=== PATIENT | male | born 1980 | race Caucasian/White ===

== ENCOUNTER 2023-09-10 11:11 | Day surgery (SDC) | payer OTHER, BC ==
[~2023-09-10] VITALS: Ht 185.4 cm; Wt 143.7 kg
[~2023-09-10 11:11] MED LIST: Lactated Ringer's 1,000 ML IV ONE; Ropivacaine 0.5% HCl/Pf 5 MG/ML 20ML VIAL ONE
[2023-09-10] MEDS ORDERED: CeFAZolin Sodium 3,000 MG in NS 100 ML IV SCH (11:25)
[2023-09-10] MEDS ORDERED: Aspir 8181 MG PO (11:32)
[2023-09-10] MEDS ORDERED: METFORMIN HCL500 M2 PO (11:32)
[2023-09-10] MEDS ORDERED: Prinivil10 MG PO (11:32)
[2023-09-10] MEDS ORDERED: DEPO-TESTO200 MG/18 IM (11:33)
[2023-09-10] MEDS ORDERED: Lactated Ringer's 1,000 ML IV ONE (11:54)
[2023-09-10] MEDS ORDERED: propofoL 20 ML IV ONE (12:28)
[2023-09-10] MEDS ORDERED: FentaNYL Citrate 50 MCG/ML 2 ML Injection ONE (12:54)
[2023-09-10] MEDS ORDERED: Dexamethasone Sod Phos 10 MG/ML 1ML VIAL ONE (12:54)
[2023-09-10] MEDS ORDERED: HYDROmorphone HCl/Pf 1MG SYR ONE (13:04)
[2023-09-10] MEDS ORDERED: Albuterol 2.5 MG/3 ML VIAL ONE (13:17)
[2023-09-10] MEDS ORDERED: Ondansetron HCl 2 MG / ML 2ML Vial ONE (13:27)
--- NOTE | 2023-09-10 15:53 | NUR ---
09/10/23 Edvin Mcfarland PT PREFERS TO USE ICE PACK RATHER THAN POLAR PACK. RATES PAIN AT 3/10 TO LEFT LEG PRIOR TO DISCHARGE. PROVIDED INSPIROMETER AND INSTRUCTION FOR USE DUE TO FLUCTUATING O2 SATS. SPOUSE PRESENT FOR ALL DISCHARGE INSTRUCTIONS. PT IN NO ACUTE DISTRESS OF TIME OF DISCHARGE.
== END 2023-09-10 15:50 | disposition home or self-care (01) ==
LOC: ORSCSDS 11:11
PROVIDERS: Orthopaedic Surgery
PROC: 0LMM0ZZ Reattachment of Left Upper Leg Tendon, Open Approach (ICD-10-PCS; principal; 2023-09-10 12:15)
DX: S76.192A Other specified injury of left quadriceps muscle, fascia and tendon, initial encounter (principal); W01.0XXA Fall on same level from slipping, tripping and stumbling without subsequent striking against object, initial encounter; E66.01 Morbid (severe) obesity due to excess calories; Z68.41 Body mass index [BMI] 40.0-44.9, adult; E11.9 Type 2 diabetes mellitus without complications; E78.5 Hyperlipidemia, unspecified; Z79.84 Long term (current) use of oral hypoglycemic drugs; Z79.899 Other long term (current) drug therapy; G47.33 Obstructive sleep apnea (adult) (pediatric); Z87.891 Personal history of nicotine dependence; Z79.82 Long term (current) use of aspirin
CPT/HCPCS: 82947; J0690; J1100; J1170; J2405; J2704; J2795; J3010; J7120